=== PATIENT | male | born 1975 | race Hispanic/Latino ===

== ENCOUNTER 2018-10-05 12:38 | Emergency (ER) | payer OTHER ==
[2018-10-05] MEDS ORDERED: TETANUS/DIPHTHERIA TOXOID [ADULT] 0.5 ML VIAL IM ONE (14:26)
== END 2018-10-05 15:40 | disposition home or self-care (01) ==
LOC: EDH 12:38
DX: S00.81XA Abrasion of other part of head, initial encounter (principal); F10.129 Alcohol abuse with intoxication, unspecified; F32.9 Major depressive disorder, single episode, unspecified; W18.39XA Other fall on same level, initial encounter; Y93.89 Activity, other specified; Y92.488 Other paved roadways as the place of occurrence of the external cause; Y99.8 Other external cause status; Y90.9 Presence of alcohol in blood, level not specified
CPT/HCPCS: 36415; 70450; 71045; 72125; 72170; 73130; 90471; 90714; 93005; 99284; G0480

== ENCOUNTER 2018-10-24 01:01 | Emergency (ER) | payer SELFPAY ==
[2018-10-24] MEDS ORDERED: OCTYL 2-CYANOACRYLATE 1 EACH TP ONE (01:49)
== END 2018-10-24 02:06 | disposition home or self-care (01) ==
LOC: EDH 01:01
DX: S61.412A Laceration without foreign body of left hand, initial encounter (principal); F32.9 Major depressive disorder, single episode, unspecified; Z72.0 Tobacco use; Y35.893A Legal intervention involving other specified means, suspect injured, initial encounter; Y93.89 Activity, other specified; Y92.89 Other specified places as the place of occurrence of the external cause; Y99.8 Other external cause status
CPT/HCPCS: 12001